=== PATIENT | male | born 1995 | race Caucasian/White ===

== ENCOUNTER 2021-12-15 13:23 | Outpatient (CLI) | payer OTHER, SELFPAY | END 2021-12-15 23:59 | disposition home or self-care (01) | LOC: LABSPEC 13:27 | PROVIDERS: Visit Provider Physician Assistant | DX: J02.9 Acute pharyngitis, unspecified (principal) | CPT/HCPCS: 87081 ==

== ENCOUNTER 2024-09-28 18:09 | Emergency (ER) | payer OTHER, SELFPAY ==
[2024-09-28 18:09] VITALS: BP 146/93; PULSE 82; RESP 16; TEMP 36.8; O2SAT 99; BMI 26.3
--- NOTE | 2024-09-28 18:25 | EDS_ITS ---
HPI History of Present Illness Chief Complaint: Abscess [facility] Medical History (Updated 09/28/24 @ 18:23 by Luz Marina Zamora) Depression Acute pharyngitis, unspecified School physical exam Home Medications ?Medication ?Instructions ?Recorded ?Last Taken ?Type sulfamethoxazole 800 1 tab PO Q12H 10 days #20 tabs 09/26/24 Unknown Rx mg-trimethoprim 160 mg tablet (Bactrim DS) cephalexin 500 mg capsule 500 mg PO TID 7 days #21 caps 09/28/24 Unknown Rx Allergy/AdvReac Type Severity Reaction Status Date / Time No Known Allergies Allergy Verified 09/28/24 18:11 Social History (System 12/07/23 @ 14:05 by Tatiana Sarah) Smoking Status: Never smoker EXAM Physical Exam Const Vital Signs: 09/28/24 18:09 Temperature 98.2 F Temperature Source Oral Pulse Rate 82 Respiratory Rate 16 Blood Pressure 146/93 H Blood Pressure Mean 110 Pulse Ox 99 Oxygen Delivery Method Room Air MDM MDM MDM Narrative Medical decision making narrative: HISTORY OF PRESENT ILLNESS: 29-year-old male presents concern for right buttock abscess. Notes this began 6 days ago. Notes that he went urgent care 3 days ago received antibiotics. Notes he is on day 3 of 10 of Bactrim. He further states he was concerned because the area continued to drain. Continues to have pain. He denies taking any Tylenol or ibuprofen. He notes compliance with home Bactrim. Denies any vomiting, fever, chills. Denies any diffuse weakness. Denies any immunocompr omising states. Notes he is tolerating oral antibiotics well REVIEW OF SYSTEMS: Pertinent positives: Pain and redness Pertinent negatives: Vomiting, fatigue, diaphoresis, PHYSICAL EXAM: Nursing triage notes reviewed, Vital signs reviewed Constitutional: please see mdm : No CVAT Extremities: No edema Skin: fluctuance induration noted to the right buttock.Peripheral area of POCUS ultrasound showed an area of abscess (approximately 1x1x2 cm) however this area was actively draining serosanguineous and purulent drainage. MEDICAL DECISION MAKING: Chief Complaint: Abscess External records reviewed: Reviewed prior urgent care visit. Factors affecting care: none MDM Narrative: Patient was initially hemodynamically stable, afebrile and nontoxic-appearing. Comfortable, smiling on exam. Exam with draining abscess to right buttock patient on day 3 of 10 of Bactrim. Added Keflex for additional antimicrobial coverage. Instructed to take Tylenol and/or ibuprofen. Gave strict return precaution follow-up instructions. No indication for labs or IV antibiotics at this time as patient does not appear septic or toxic and has normal vitals, is nontoxic-appearing and afebrile. He is tolerating p.o. antibiotics well. Encouraged to continue to course complete and follow-up with his primary care physician in the next 7 days for re-evaluation. I considered the following differential diagnosis: Abscess, cellulitis, necrotizing fasciitis The patient's history and physical exam not consistent with necrotizing fasciitis he was more consistent with cellulitis and abscess. However the abscess was draining. No indication for incision and drainage at this time. The patient and/or family, caregivers express understanding. The patient and/or family, caregivers agrees with the plan. Shared decision making: I will have a discussion with the patient and or visitors regarding risk/benefits of further testing or admission. They will be made aware of of the risk/benefits inherent in this decision they will be given the opportunity to voice understanding. Total critical care time today provided was at least 0 minutes. This excludes separately billable procedures. Critical care time (if documented) is secondary to the patient having high probability of clinically significant/life threatening deterioration in the patient's condition which required my urgent intervention. Impression: 1. Abscess 2. Cellulitis Dispo: discharge This note was generated with [employer] dictation software. It may contain incorrect words, spelling, and punctuation that were not noted in review of the chart prior to signing. Discharge Plan Triage Chief Complaint: Abscess ED Provider: Warren Blanco Dx/Rx/DC Orders Instructions: ED Abscess Antibiotic Treatment Only Prescriptions: New cephalexin 500 mg capsule 500 mg PO TID 7 Days Qty: 21 0RF No Action sulfamethoxazole-trimethoprim [Bactrim DS] 800-160 mg tablet 1 tab PO Q12H 10 Days Qty: 20 0RF [facility] Care Provider[facility] [facility] [Primary Care [facility]] - Activity Restrictions/Additional Instructions: Thank you for trusting us with your care today! Your exam is consistent with a draining abscess. We discussed allowing drainage. We discussed warm compresses. We discussed expanding your antimicrobial therapy and added Keflex. Please take Bactrim and Keflex as prescribed until course complete. I would expect your symptoms to stabilize over the next 1 to 3 days and then start to improve over the final 3 days of your antibiotic therapy. Please take Tylenol (2 pills, 650 mg), ibuprofen (2 pills, 400 mg) every 6 hours as needed for pain and fever control. Please encourage drainage with warm compresses. Please return to the emergency department if your symptoms change or worsen. Specifically if you develop vomiting, fatigue, diffuse weakness, if you lose consciousness, if redness swelling and pain rapidly progress over a matter of hours Please follow with your primary care physician for further outpatient evaluation and management. Print Language: Yoruba Disposition Disposition: Home, Self Care
[2024-09-28] MEDS: Acetaminophen 325 MG Tablet 650 MG PO (18:55)
[2024-09-28] MEDS: Ibuprofen 200 MG Tablet 400 MG PO (18:55)
[2024-09-28] MEDS: Cephalexin 250 MG Capsule 500 MG PO (18:56)
[2024-09-28 18:59] VITALS: BP 134/78; PULSE 64; RESP 18; TEMP 36.6; O2SAT 99
== END 2024-09-28 19:09 | disposition home or self-care (01) ==
LOC: ED 19:01
PROVIDERS: Emergency Provider Emergency Medicine; Visit Provider Emergency Medicine
DX: L02.31 Cutaneous abscess of buttock (principal); L03.317 Cellulitis of buttock
CPT/HCPCS: 99283